=== PATIENT | female | born 1930 | race Caucasian/White ===

== ENCOUNTER 2020-04-06 09:42 | Day surgery (SDC) | payer MEDICARE ==
[2020-04-05 13:53] VITALS: BMI 14.7
--- NOTE | 2020-04-06 05:58 | HP ---
HISTORY OF PRESENT ILLNESS: This is an 89-year-old female comes for EGD and PEG tube placement today. The patient hospitalized at [facility] over the weekend with dysphagia, dehydration. The patient rehydrated with IV fluids. On admission, her electrolytes showed normal lytes. BUN was 33, creatinine was 0.73. With hydration shows sodium 147, potassium 3.5, chloride 109 back down to normal at 15, creatinine 0.56. The patient apparently has had difficulty swallowing and . The patient unable to . The patient was referred to me by Dr. Blaine Sandoval for EGD and PEG tube placement. MEDICAL ILLNESSES: 1. Hypertension. 2. Hyperlipidemia. 3. Past history of CVA. 4. Hypothyroidism. ALLERGIES: SULFA. PHYSICAL EXAMINATION: VITAL SIGNS: Pulse is 83, blood pressure is . HEENT: Conjunctivae are clear. CARDIOVASCULAR SYSTEM: Normal heart sounds. LUNGS: Clear to auscultation. ABDOMEN: Soft. No organomegaly. No tenderness. ASSESSMENT: dysphagia and dehydration. PLAN: EGD and PEG tube placement. Job ID: [id number]
[~2020-04-06 09:42] MED LIST: Lidocaine 1% PF 5 ML VIAL ONE; PROPOFOL 200 MG/20 ML VIAL ONE
--- NOTE | 2020-04-07 06:47 | OP ---
DATE OF PROCEDURE: 04/06/2020 PREOPERATIVE DIAGNOSIS: Dysphagia, dehydration. POSTOPERATIVE DIAGNOSES: 1. Markedly angulated, somewhat tortuous upper esophagus. 2. Mild gastritis OPERATIVE PROCEDURE: Esophagogastroduodenoscopy with endoscopic gastrostomy tube placement. PROCEDURE: The patient was placed on her back and was given sedation by Anesthesia Department. A bite block was placed. A Pentax video gastroscope under direct vision passed into the posterior pharynx. It was difficult to advance scope into the upper esophagus. Appeared to be some angulation and nonspecific compression possibly from old scar. The patient was turned on the left lateral position. again it was very difficult to advance scope. It was decided to pass an NG tube subsequently. The NG tube was advanced into stomach without difficulty. The scope was advanced following NG tube into the esophagus. The NG tube was pulled out. The scope was advanced into stomach without difficulty. Retroflexion failed to show any pathology in fundus or cardia. The gastric body, gastric antrum showed no pathology. A G-tube site was marked by transillumination from within and also by applying finger pressure to confirm the pressure. The site was cleaned and surgically prepped. The site was anesthetized with 1% Xylocaine infiltration. Over the site, a size 16 Angiocath was advanced into the stomach. Through the Angiocath, a guidewire was fed into the stomach and was grasped with polypectomy snare and pulled outside of the mouth. Through the end of the guidewire protruding outside the mouth, a gastrostomy tube was connected. The wire was pulled back retrograde and the tube was left in place.. The G-tube bumper applied and dressing applied. DISCHARGE PLANNING: This is an 89-year-old female came in for EGD/PEG tube placement. She had the procedure done. She is being dischaeged back to [facility].Will start tube feeding later today . Job ID: [id number] [facility]
== END 2020-04-06 14:42 | disposition short-term general hospital (02) ==
LOC: SDC 09:42
PROVIDERS: ATTEND Internal Medicine Gastroenterology
PROC: 0DH63UZ Insertion of Feeding Device into Stomach, Percutaneous Approach (ICD-10-PCS; principal; 2020-04-06)
DX: K22.8 Other specified diseases of esophagus (principal); K29.70 Gastritis, unspecified, without bleeding; R13.10 Dysphagia, unspecified; E86.0 Dehydration; I10 Essential (primary) hypertension; E78.5 Hyperlipidemia, unspecified; E03.9 Hypothyroidism, unspecified; Z86.73 Personal history of transient ischemic attack (TIA), and cerebral infarction without residual deficits; Z79.82 Long term (current) use of aspirin; Z79.899 Other long term (current) drug therapy; Z88.2 Allergy status to sulfonamides
CPT/HCPCS: J0690; J2704